=== PATIENT | female | born 1985 ===

== ENCOUNTER 2024-08-30 11:10 | Inpatient (IN) | payer BC ==
[2024-08-30] MEDS ORDERED: KETOROLAC 15 MG/ML 1 ML VIAL IM PRN (14:41)
[2024-08-30 15:28] LABS: Basophils # (A) 0.02 10*3/uL (0.00-0.10); Basophils % (A) 0.1 %; HCT 22.5 % (37.2-46.3); HGB 7.5 g/dL (12.0-15.0); Lymphocytes # (A) 1.36 10*3/uL (0.90-5.00); Lymphocytes % (A) 8.7 %; MCH 30.9 pg (27.0-32.0); MCHC 33.3 g/dL (32.0-37.0); MCV 92.6 fL (80.0-97.0); Mean Platelet Volume 10.9 fL (9.5-12.2); Monocytes # (A) 1.21 10*3/uL (0.20-1.00); Monocytes % (A) 7.8 %; Platelet Count 183 10*3/uL (140-440); RBC 2.43 10*6/uL (4.10-5.20); RDW 13.4 % (11.5-14.5); WBC 15.56 10*3/uL (4.50-10.00)
--- NOTE | 2024-08-30 15:34 | P.HPOB ---
History of Present Illness H&P Date: 08/30/24 Chief Complaint: 08/30/2024 Ms. Buchanan is a 39 at 9 weeks and 1 day by LMP of 06/27/2024 with left ectopic who was directly admitted under Dr. Cabrera after admission to [facility] yesterday evening. Her serum HCG was 27,000 on admission. She presented with nausea, vomiting, and acute abdominal pain. [facility] obtained this morning that showed the left ectopic , at the time no evidence of rupture. Overnight her hemoglobin dropped from 11.2 to 8.6 and she was hypotensive as low as 80/43. After eating breakfast at 800, she was made NPO and she was transfered to [facility] for OBGYN consultation. She now rates her pain 7/10. She is lightheaded and cannot ambulate to the restroom. She is tachycardic, pulse currently 108. Most recent blood pressure was 110s/70s. She has an acute abdomen on palpation. The entire clinical picture is concerning for rupture of ectopic . OBGYN history: regular menses, last 06/27/24. She has never been before. Past Surgical history: None Medications: None Past Medical History: None Social History: occasional THC use, otherwise negative Medications and Allergies Allergies Allergy/AdvReac Type Severity Reaction Status Date / Time Penicillins Allergy Nausea & Verified 08/30/24 14:40 Vomiting Exam Vital Signs Temp Pulse Resp BP Pulse Ox 08/30/24 14:45 99.2 F 101 H 18 116/77 100 08/30/24 14:00 99.6 F 103 H 18 128/83 100 Intake and Output 08/30/24 08/30/24 08/30/24 06:59 14:59 22:59 Other: Weight 82.1 kg Patient appears uncomfortable, lethargic. Breathing non-labored. Abdomen acutely tender to palpation, left side more than right. Extremities non-tender and non- edematous. Assessment and Plan Assessment: 39 year old at 9 weeks and 1 day with LMP 06/27/2024 with suspected rupture of left ectopic Plan: Admit, NPO. Patient consented for Laparoscopic Left Salpingectomy, Removal of Ectopic . Risks of bleeding, infection, and damage to surrounding structure are discussed with the patient. All questions are answered. Will proceed to the OR for STAT surgery.
[2024-08-30] MEDS ORDERED: GLYCOPYRROLATE 0.2 MG/ML 2 ML VIAL ONE (16:04)
[2024-08-30] MEDS ORDERED: fentaNYL (PF) 50 MCG/ML 2 ML AMP ONE (16:04)
[2024-08-30] MEDS ORDERED: ETOMIDATE 2 MG/ML 10 ML VIAL ONE (16:04)
[2024-08-30] MEDS ORDERED: SUCCINYLCHOLINE CHLORIDE 200 MG/10 ML VIAL IV ONE (16:04)
[2024-08-30] MEDS ORDERED: MIDAZOLAM 2 MG/2 ML VIAL ONE (16:04)
[2024-08-30] MEDS ORDERED: NEOSTIGMINE 1 MG/ML 10 ML VIAL ONE (16:04)
[2024-08-30] MEDS ORDERED: LIDOCAINE 1% INJ 10MG/ML (20 ML MDV) ONE (16:04)
[2024-08-30] MEDS ORDERED: HYDROmorphone (PF) 1 MG/ML ONE (16:04)
[2024-08-30] MEDS ORDERED: ROCURONIUM 10 MG/ML (5 ML VIAL) IV ONE (16:04)
[2024-08-30] MEDS: SODIUM CHLORIDE 0.9% 1,000 ML IV ONE ×2 (16:10→17:23)
[2024-08-30] MEDS: BUPIVACAINE (PF) 0.25% 30 ML VIAL SQ ONE ×2 (16:36→17:29)
[2024-08-30] MEDS ORDERED: SIMETHICONE 80 MG CHEWABLE PO PRN (17:34)
--- NOTE | 2024-08-30 17:45 | P.OP ---
Date of Procedure: 08/30/24 Preoperative Diagnosis: Ruptured Ectopic Postoperative Diagnosis: Ruptured Ectopic , Hemoperitoneum Procedure(s) Performed: Laparoscopic Left Salpingectomy, Removal of Ectopic , Evacuation of Hemoperitoneum Implants: None Anesthesia: TAD Surgeon: Audra Reyes Estimated Blood Loss (ml): 1,500 IV fluids (ml): 1,000 Urine output (ml): 800 Pathology: other (left fallopian tube containing ectopic ) Condition: stable Disposition: floor Indications for Procedure: Ms. Buchanan is a 39 at 9 weeks and 1 day gestation with ruptured ectopic . Risks, benefits, and alternatives to Laparoscopic Left Salpingectomy, Removal of Ectopic are discussed with the patient including risk of bleeding, infection, damage to surrounding structures, la parotomy. All questions answered. Operative Findings: Left enlarged fallopian tube with ectopic . 1500mL in hemoperitoneum noted in the abdomen and removal. Uterus grossly unremarkable, bilateral ovaries normal. Thin adhesions noted on bilateral fallopian tubes. Description of Procedure: Patient was taken to the OR with IV fluid running and pneumatic compression stockings on both legs. General anesthesia was obtained without difficulty. The patient was placed in the dorsal lithotomy position with Vicente-type stirrups with knees bent at 30 degree angles. Examination under anesthesia revealed a normal-sized, anteverted uterus. The patient as prepared and draped. The bladder was emptied. A speculum was placed into the vagina. The anterior lip of the cervix was grasped with a single-toothed tenaculum. A uterine manipulator was introduced. A horizontal skin incision was made at the umbilical fold. The periumbilical skin was manually elevated. The Veress needle was introduced into the peritoneal cavity at a straight angle without difficulty. A saline drop test was performed to validate intraperitoneal placement. The pneumoperitoneum was established with CO2 gas to a pressure of 15mmHg. A 5mm trocar was inserted into the abdomen under direct laparoscopic visualization. Intraabdominal survey revealed lack of any visceral or vascular injury. The pelvic and abdominal anatomy was noted as above including 1500mL of hemoperiteum and organized blood clot in the abdomen. Two additional laparoscopic assit ports were placed in the right and left lower quadrants. A Taina Grasper was used to machine operator hop picker the fimbriated end of the left fallopian tube. The LigaSure device was used to seal and ligate the fallopian tube sequentially to the level of the uterine cornua. The fallopian tube was then transected and placed in a specimen retrieval bag. Blood was evacuated from the abdomen and the remaining organized blood clot was also placed in the specimen bag. All specimens were removed from the left lower quadrant trocar site. Excellent hemostasis was noted at the end of the case. The patient tolerated the procedure well. All instruments were removed from the abdomen and vagina, and all counts were correct times two. The patient did received 500mL of albumin and 1 unit of packed red blood cells were given to the patient intraoperatively. The patient was taken to the recovery room in stable condition.
[2024-08-30 18:10] LABS: HCT 23.3 % (37.2-46.3); HGB 7.9 g/dL (12.0-15.0); Immature Platelet Fraction 3.7 % (1.1-6.1); MCH 31.1 pg (27.0-32.0); MCHC 33.9 g/dL (32.0-37.0); MCV 91.7 fL (80.0-97.0); Platelet Count 127 10*3/uL (140-440); RBC 2.54 10*6/uL (4.10-5.20); RDW 13.7 % (11.5-14.5); WBC 14.91 10*3/uL (4.50-10.00)
[2024-08-30] MEDS: IV FLUID CONTINUATION 1,000 ML IV ONE (18:10)
[2024-08-30] MEDS ORDERED: ONDANSETRON 4 MG/2 ML VIAL IVP PRN (19:32)
[2024-08-30] MEDS: IBUPROFEN 800 MG TAB PO SCH (20:21)
[2024-08-30] MEDS: diphenhydrAMINE 25 MG CAP PO PRN (22:46)
[2024-08-31] MEDS: ACETAMINOPHEN TAB 500 MG TAB PO SCH (02:50)
[2024-08-31 05:10] LABS: Basophils # (A) 0.02 10*3/uL (0.00-0.10); Basophils % (A) 0.2 %; Eosinophils # (A) 0.02 10*3/uL (0.04-0.35); Eosinophils % (A) 0.2 %; Lymphocytes % (A) 15.3 %; MCH 30.8 pg (27.0-32.0); MCHC 33.3 g/dL (32.0-37.0); MCV 92.3 fL (80.0-97.0); Mean Platelet Volume 10.5 fL (9.5-12.2); Monocytes # (A) 0.87 10*3/uL (0.20-1.00); Monocytes % (A) 7.9 %; Neutrophils % (A) 75.8 %; Platelet Count 126 10*3/uL (140-440); RBC 2.08 10*6/uL (4.10-5.20); RDW 13.9 % (11.5-14.5); WBC 11.08 10*3/uL (4.50-10.00)
[2024-08-31 05:20] LABS: HGB 6.4 g/dL (12.0-15.0)
[2024-08-31 05:21] LABS: HCT 19.2 % (37.2-46.3)
--- NOTE | 2024-08-31 09:36 | P.PN ---
Progress Note - Text Progress Note Date: 08/31/24 S: Patient feeling well this morning. States she has no pain. Ambulating to the bathroom, still with some lightheadedness. Hgb gregory down to 6.5 this morning, given 1 additional unit of packed RBCs. Tolerative PO, voiding normally. O: VSS. Patient comfortable, conversing normally. Breathing non-labored. Abdomen soft, non-tender, incisions clean/dry/intact. Extremities nontender, nonedematous. A/P: 39 year old POD#1 s/p Laparoscopic Left Salpingectomy for Ruptured Ectopic - Hgb 11.2 > 7.5 > 1u packed RBCs and 500ml albumin intraoperatively > 7.9 > 6.5 > 1u packed RBCs this AM > repeat CBC noon - Will give 125 of IV iron - Will assess for stability for discharge this afternoon versus tomorrow morning.
[2024-08-31] MEDS: SODIUM FERRIC GLUCONAT-SUCROSE 125 MG in SODIUM CHLORIDE 0.9% 100 ML IVPB ONE (10:39)
[2024-08-31 11:58] LABS: Basophils # (A) 0.06 10*3/uL (0.00-0.10); Basophils % (A) 0.5 %; Eosinophils # (A) 0.07 10*3/uL (0.04-0.35); Eosinophils % (A) 0.6 %; HCT 23.3 % (37.2-46.3); HGB 7.8 g/dL (12.0-15.0); Lymphocytes # (A) 1.72 10*3/uL (0.90-5.00); Lymphocytes % (A) 13.7 %; MCH 30.4 pg (27.0-32.0); MCHC 33.5 g/dL (32.0-37.0); MCV 90.7 fL (80.0-97.0); Mean Platelet Volume 10.3 fL (9.5-12.2); Monocytes # (A) 1.08 10*3/uL (0.20-1.00); Monocytes % (A) 8.6 %; Neutrophils # (A) 9.55 10*3/uL (1.80-7.70); Platelet Count 124 10*3/uL (140-440); RBC 2.57 10*6/uL (4.10-5.20); RDW 14.1 % (11.5-14.5); WBC 12.56 10*3/uL (4.50-10.00)
[2024-08-31 13:03] VITALS: BP 108/70; PULSE 99; RESP 18; TEMP 98.2
--- NOTE | 2024-08-31 14:13 | P.DS ---
Providers Date of admission: 08/30/24 14:36 Expected date of discharge: 08/31/24 Attending physician: Jose Cabrera Primary care physician: Stated None Hospital Course: Ms. Buchanan is a 39 year old at 9 weeks gestation who was directly admitted for [facility] for ruptured ectopic . She was deemed unstable with tachycardia, Hgb that had dropped from 11.2 to 7.5 overnight, and hypotension. The decision was made to go to the OR for laparoscopic left salpingectomy, removal of ectopic , and evacuation of hemoperitoneum. The surgery was uncomplicated, please refer to the operative report. The patient did receive 1 unit of packed red blood cells and 500mL of albumin intraoperatively. The paitent's hgb did gregory down to 6.5 overnight, for which she was given an addition unit of packed RBCs and 125mg of IV iron prior to discharge. Repeat CBC was stable, patient was no longer symptomatic, was abmulating, tolerative PO, and denied pain. She was discharged home with oral iron, stool softeners, motrin, and tylenol. She will be heading home to [place] on Monday and is to follow up with her garden worker in 2 weeks for incision check. All questions are answered. Patient Condition at Discharge: Stable Plan - Discharge Summary New Discharge Prescriptions: New Docusate [Colace] 100 mg PO BID PRN #60 capsule PRN Reason: Constipation Ibuprofen [Motrin] 600 mg PO Q6HR PRN #30 tab PRN Reason: Mild Pain (Scale 1 To 3) Ferrous Sulfate [Iron (65 MG Elemental)] 325 mg PO DAILY #30 tab Acetaminophen Tab [Tylenol] 650 mg PO Q6H PRN #30 tab PRN Reason: Mild Pain (Scale 1 To 3) Discharge Medication List Acetaminophen Tab [Tylenol] 650 mg PO Q6H PRN #30 tab 08/31/24 [Rx] Docusate [Colace] 100 mg PO BID PRN #60 capsule 08/31/24 [Rx] Ferrous Sulfate [Iron (65 MG Elemental)] 325 mg PO DAILY #30 tab 08/31/24 [Rx] Ibuprofen [Motrin] 600 mg PO Q6HR PRN #30 tab 08/31/24 [Rx] Activity/Diet/Wound Care/Special Instructions: call for appointment MondaySeptember [address] Reyes [phone] or be seen by primary OBGYN within 1 week. Discharge Disposition: HOME SELF-CARE
== END 2024-08-31 14:20 | disposition home or self-care (01) | DRG 817 ==
LOC: 4FBP 14:36
PROVIDERS: ADMIT Obstetrics & Gynecology; ATTEND Obstetrics & Gynecology
PROC: 10T24ZZ Resection of Products of Conception, Ectopic, Percutaneous Endoscopic Approach (ICD-10-PCS; principal; 2024-08-30 12:10)
DX: O00.102 Left tubal pregnancy without intrauterine pregnancy (principal); K66.1 Hemoperitoneum; Z3A.09 9 weeks gestation of pregnancy
CPT/HCPCS: 85025; 85027; 86850; 86900; 86901; 86920